=== PATIENT | female | born 1945 | race Caucasian/White ===

== ENCOUNTER 2019-06-09 13:13 | Emergency (ER) | payer MEDICARE ==
--- OUTSIDE RECORDS SUMMARY | 2019-06-09 13:21 | XMS REPORT | Continuity of Care Document ---
:1945 External Reference #:[id number] Author Name Zaira Bonilla M.D. (transmitted by agent of provider She Lujan) Address [address] [place] [address] Problems Active Problems Provider Date Hyperlipidemia Zaira Bonilla M.D. Onset: 07/02/2012 Benign hypertensive heart disease without Zaira Bonilla M.D. Onset: 07/02/2012 congestive heart failure Chronic ischemic heart disease Zaira Bonilla M.D. Onset: 07/02/2012 Depressive disorder Zaira Bonilla M.D. Onset: 07/02/2012 Peripheral vascular disease Zaira Bonilla M.D. Onset: 07/02/2012 Common cold Zaira Bonilla M.D. Onset: 07/02/2012 Social History Type Date Description Comments Sex Unknown ETOH Use Denies alcohol use Tobacco Use Start: Unknown End: Patient is a former smoker Quit in 1972 Unknown Recreational Drug Use Denies Drug Use Smoking Status Reviewed: 04/25/18 Patient is a former smoker Quit in 1972 Allergies, Adverse Reactions, Alerts Active Allergies Reaction Severity Comments Date sulfa Rash 07/02/2012 Codeine Epigastric pain 07/02/2012 Medications Active Medications SIG Qnty Indications Ordering Date Provider Azithromycin 2 by mouth 6tabs J02.9 Zaira Bonilla, 04/30/2019 250mg today, 1 by M.DKiara Tablets mouth day 2 thru 5 Dorzolamide 1 gtt both eyes Zaira Bonilla, 02/25/2019 Hydrochloride/Timolol bid M.DKiara Maleate PF 22.3-6.8mg/ml Solution Lumbar Back as directed 1units M54.16 Zaira Bonilla, 02/25/2019 Brace/Supportpad/Adjus M.D. table Misc Diltiazem HCL ER Take One Capsule 90caps Zaira Bonilla, 01/15/2019 Coated Beads By Mouth Every M.D. 120mg Caps Day ER 24HR Fluticasone Propionate 1 spray each 1Bottle L20.9 Zaira Bonilla, 12/24/2018 Nasal Lyme 24- Hour nostril once M.D. daily 50mcg/Act Suspension Imodium A-D 1 by mouth every 30caps Zaira Bonilla, 05/30/2018 2mg Capsules 4 hours as M.D. needed for diarrhea Alprazolam 1 by mouth three 90tabs Zaira Bonilla, 04/25/2018 0.25mg Tablets times a day as M.D. needed Betamethasone apply to 30gm L40.0 Zaira Bonilla, 04/12/2017 Dipropionate affected areas M.D. 0.05% Cream right nares twice daily Sertraline HCL Take One And 150tabs Zaira Bonilla, 09/14/2015 100mg One-Half Tablets M.D. Tablets By Mouth Daily Plavix take one tablet 90tabs Zaira Bonilla, 07/02/2012 75mg Tablets by mouth every M.D. day Nitroglycerin Lingual Zaira Bonilla, 07/02/2012 M.DKiara 0.4mg/Lyme Solution Valtrex 1 by mouth three 30tabs Zaira Bonilla, 07/02/2012 500mg Tablets times a day as M.D. needed Tylenol 8 Hour as needed 100tabs Zaira Bonilla, 07/02/2012 650mg M.D. Tablets ER Methotrexate tab 2 by mouth Unknown 2.5mg every week Tablets Remicade every 8 weeks Unknown 300mg Solution Rec Crestor 1 by mouth every Unknown 10mg Tablets day History Medications Atorvastatin Calcium tab 1 by mouth Zaira Bonilla M.D. 01/27/2019 - 80mg every day 02/25/2019 Tablets Diltiazem HCL every day 30tabs Zaira Bonilla M.D. 01/15/2019 - 120mg Tablets 01/27/2019 Immunizations CPT Code Status Date Vaccine Lot # [id number] Given 03/27/2019 Influenza Virus (Afluria) Split Virus 3 Years Of Age And Older 08505 Given 03/27/2019 Influenza Virus Vaccine, Quadrivalent, Split, Preservative Free [id number] Given 03/26/2018 Influenza Virus (Afluria) Split Virus 3 Years Of Age And Older 10863 Given 03/26/2018 Influenza Virus Vaccine, Quadrivalent, Split, Preservative Free [id number] Given 03/26/2018 Influenza,Inactivated Subunit For Intramuscular [id number] Use Q2035 Given 04/12/2017 Influenza Virus (Afluria) Split Virus 3 Years Of [id number] Age And Older Q2037 Given 03/13/2016 Influenza Vaccine (Fluvirin) 3 Years Of Age Or [id number] Older Q2037 Given 05/18/2015 Influenza Vaccine (Fluvirin) 3 Years Of Age Or [id number] Older Q2037 Given 04/08/2014 Influenza Vaccine (Fluvirin) 3 Years Of Age Or Older [id number] Given 04/03/2013 Influenza Vaccine (Fluzone) Administered Age 3 And Older Q2038 Given 04/03/2013 Influenza Vaccine (Fluzone) Administered Age 3 [id number] And Older Q2037 Given 04/15/2012 Influenza Vaccine (Fluvirin) 3 Years Of Age Or [id number] Older 47123 Given 07/16/2009 Pneumovax Polyvalent Inj Im Vital Signs Date Vital Result Comment 04/30/2019 10:59am BP Systolic 138 mmHg BP Diastolic 82 mmHg Heart Rate 72 /min Height 61 inches 5'1" Weight 132.00 lb BMI (Body Mass Index) 24.9 kg/m2 O2 % BldC Oximetry 96 % 03/27/2019 10:51am BP Systolic 148 mmHg BP Diastolic 84 mmHg Heart Rate 78 /min Height 61 inches 5'1" Weight 133.00 lb BMI (Body Mass Index) 25.1 kg/m2 O2 % BldC Oximetry 98 % Results Test Date Facility Test Result H/L Range Note Glycohemoglobin A1c 01/15/20 [facility] Glycohemoglobin 5.6 % Normal 4.2-6.3 1, [address] (A1c) [place], [place] [id number] [phone] eAG 114 mg/dL Comprehensive 01/14/2019 [facility] Glucose 114 mg/ dL High 74-106 Metabolic Panel [address] [place], [place] [id number] [phone] BUN 21 mg/dL High 7-18 Creatinine 0.7 mg/dL Normal 0.6-1.3 Glom Filtration Rate, Estimate >60 mL/min >60 If >60 mL/min >60 3 BUN/Creat 30.0 ratio Sodium 139 mmol/L Normal 136-145 Potassium 4.2 mmol/L Normal 3.5-5.1 Chloride 107 mmol/L Normal 98-107 Carbon Dioxide 28 mmol/L Normal 21-32 Anion Gap 4 mEq/L Low 8-16 Calcium 9.2 mg/dL Normal 8.5-10.1 Total Protein 7.5 g/dL Normal 6.4-8.2 Albumin 3.9 g/dL Normal 3.4-5.0 Globulin 3.6 g/dL Normal 1.9-4.3 Alb/Glob 1.1 ratio Bilirubin,Total 0.3 mg/dL Normal 0.2-1.0 Sgot/Ast 22 U/L Normal 15-37 SGPT/Alt 30 U/L Normal 12-78 Alkaline Phosphatase 72 U/L Normal 45-117 Reflex add FT3? Y Reflex add FT4? Y LDL Cholesterol 01/14/2019 [facility] Cholesterol 157 mg/dL <200 [address] [place] [address] [phone] Triglycerides 78 mg/dL <150 5 HDL Cholesterol 41 mg/dL >40 6 LDL-Cholesterol 100 mg/dL < 100 7 Reflex add FT3? Y Reflex add FT4? Y TSH Reflex 01/14/2019 [facility] Thyroid Stim 2.19 uIU/mL Normal 0.30-4.20 FT4 And/Or [address] Hormone FT3 [place] [address] [phone] Reflex add FT3? Y Reflex add FT4? Y 1 E78.2 I25.10 2 Elevated levels of HbA1c suggest the need for more aggressive treatment of glycemia. The [place] [employer] recommends that a primary goal of therapy should be a HbA1c of <7% and that physicians should re-evaluate the treatment regimen in patients with HbA1c values consistently >8%. 3 Note: Persistent reduction for 3 months or more in an eGFR <60 mL/min/1.73 m2 defines CKD. Patients with eGFR values >/=60 mL/min/1.73 m2 may also have CKD if evidence of persistent proteinuria is present. The original MDRD equation for estimated GFR is not valid for patients less than 18 years of age. Additional information may be found at www.kdoqi.org. 4 Reference Guidelines*: Desirable: ........... < 200 mg/dL Borderline High: ..... 200-239 mg/dL High: ................ >= 240 mg/dL * The National Cholesterol Education Program (NCEP) 5 Reference Guidelines*: Normal: ............. < 150 mg/dL Borderline High: .... 150-199 mg/dL High: ............... 200-499 mg/dL Very High: .......... > 500 mg/dL * Source: National Cholesterol Education Program (NCEP) 6 Reference Guidelines*: Low HDL: ..... < 40 mg/dL Normal: ..... 40-60 mg/dL Desirable: ... > 60 mg/dL *The National Cholesterol Education Program(NCEP) 7 Reference Guidelines*: Optimal:........... <100 mg/dL Near Optimal....... 100-129 mg/dL Borderline High.... 130-159 mg/dL High............... 160-189 mg/dL Very High.......... >=190 mg/dL * Source: National Cholesterol Education Program (NCEP) Procedures Date Code Description Status 02/08/2015 22055946 Mammogram Completed 04/02/2014 004313496 Bone Mineral Density Test Completed 07/16/2009 [id number] Colonoscopy Completed Medical Devices Description No Information Available Encounters Type Date Location Provider Dx Diagnosis Office Visit 03/27/2019 Main Office Zaira Bonilla M.D. F41.1 Generalized anxiety 10:45a disorder L40.50 Arthropathic psoriasis, unspecified K21.9 Gastro-esophageal reflux disease without esophagitis Z23 Encounter for immunization Office Visit 02/25/2019 2:15p Main Office Zaira Bonilla L40.50 Arthropathic M.D. psoriasis, unspecified F41.1 Generalized anxiety disorder M54.16 Radiculopathy, lumbar region Office Visit 01/27/2019 2:30p Main Office Zaira Bonilla L40.50 Arthropathic M.D. psoriasis, unspecified F41.1 Generalized anxiety disorder E78.5 Hyperlipidemia, unspecified I25.10 Athscl heart disease of [place] coronary artery w/o ang pctrs Office Visit 12/30/2018 3:00p Main Office Zaira Bonilla, L23.3 Allergic contact M.D. dermatitis due to drugs in contact w skin L40.50 Arthropathic psoriasis, unspecified F41.1 Generalized anxiety disorder Office Visit 12/24/2018 2:30p Main Office Zaira Bonilla L20.9 Atopic dermatitis, M.D. unspecified Office Visit 11/26/2018 10:45a Main Office Zaira Bonilla F41.1 Generalized anxiety M.D. disorder L23.3 Allergic contact dermatitis due to drugs in contact w skin Assessments Date Code Description Provider 04/30/2019 F41.1 Generalized anxiety disorder Zaira Bonilla M.D. 04/30/2019 L40.50 Arthropathic psoriasis, unspecified Zaira Bonilla M.D. 04/30/2019 J02.9 Acute pharyngitis, unspecified Zaira Bonilla M.D. 03/27/2019 F41.1 Generalized anxiety disorder Zaira Bonilla M.D. 03/27/2019 L40.50 Arthropathic psoriasis, unspecified Zaira Bonilla M.D. 03/27/2019 K21.9 Gastro-esophageal reflux disease without Zaira Bonilla M.D. esophagitis 03/27/2019 Z23 Encounter for immunization Zaira Bonilla M.D. 02/25/2019 L40.50 Arthropathic psoriasis, unspecified Zaira Bonilla M.D. 02/25/2019 F41.1 Generalized anxiety disorder Zaira Bonilla M.D. 02/25/2019 M54.16 Radiculopathy, lumbar region Zaira Bonilla M.D. 01/27/2019 L40.50 Arthropathic psoriasis, unspecified Zaira Bonilla M.D. 01/27/2019 F41.1 Generalized anxiety disorder Zaira Bonilla M.D. 01/27/2019 E78.5 Hyperlipidemia, unspecified Zaira Bonilla M.D. 01/27/2019 I25.10 Atherosclerotic heart disease of [place] coronary Zaira Bonilla M.D. artery without a 12/30/2018 L23.3 Allergic contact dermatitis due to drugs in Zaira Bonilla M.D. contact with skin 12/30/2018 L40.50 Arthropathic psoriasis, estellaified Zaira Bonilla M.D. 12/30/2018 F41.1 Generalized anxiety disorder Zaira Bonilla M.D. 12/24/2018 L20.9 Atopic dermatitis, unspecified Zaira Bonilla M.D. 11/26/2018 F41.1 Generalized anxiety disorder Zaira Bonilla M.D. 11/26/2018 L23.3 Allergic contact dermatitis due to drugs in Zaira Bonilla M.D. contact with skin Plan of Treatment Future Appointment(s):06/02/2019 10:30 am - Zaira Bonilla M.D. at [id number] - Zaira Bonilla M.D.F41.1 Generalized anxiety disorderComments:continue xanax 0.25 mg bid, urine drug test results are as expected. Functional Status Description No Information Available Mental Status Description No Information Available Referrals Refer to Reason for Referral Status Appt Date [place] 04/28/2019 [address] [facility] [address] [phone]
[2019-06-09 13:26] VITALS: BP 156/79
--- NOTE | 2019-06-09 14:23 | ED ---
GI/ HPI - HPI Summary HPI Summary: 73-year-old white female presents for medication refill for alprazolam 0.25 mg. Per [employer] website last prescription refill was on April 29, 2019 for 90 tabs. Patient states she's recently had psoriasis flare up which required her to take 3 times a day dosing of her alprazolam which was up from her twice a day daily dosing of alprazolam. However she called PCP for medication refill, she was told by her PCP as well as her insurance company to go to urgent care for a few pills to bridge her refills. Patient is visibly anxious as to having her medications refilled and having met resistance in getting her anti-anxiolytic medication filled. - History of Current Complaint Chief Complaint: UCGeneralIllness Time Seen by Provider: 06/09/19 13:34 Stated Complaint: MED REFILL Hx Obtained From: Patient, Family/M[employer] Work[employer] Pain Intensity: 0 - Allergy/Home Medications Allergies/Adverse Reactions: Allergies Allergy/AdvReac Type Severity Reaction Status Date / Time codeine Allergy Unknown Unknown Verified 06/09/19 13:26 Reaction Details Sulfa (Sulfonamide Allergy Unknown Unknown Verified 06/09/19 13:26 Antibiotics) Reaction Details Home Medications: Home Medications Rosuvastatin (NF) [Crestor (NF)] 20 mg PO BEDTIME 06/09/19 [History Confirmed ] inFLIXimab* [Remicade*] 100 mg .SEE ORDER SEE INSTRUCTIONS 06/09/19 [History Confirmed 06/09/19] PMH/Surg Hx/FS Hx/Imm Hx Previously Healthy: No Cardiovascular History: Reports: Hx Hypertension Psychiatric History: Reports: Hx Anxiety - Surgical History Surgery Procedure, Year, and Place: 3 bipasses; PAD; gallbladder; stents in heart Infectious Disease History: No Infectious Disease History: Denies: Traveled Outside the [place] in Last 30 Days - Family History Known Family History: Positive: Non-Contributory - Social History Alcohol Use: None Substance Use Type: Reports: None Smoking Status (MU): Never Smoked Tobacco Review of Systems Constitutional: Negative Eyes: Negative ENT: Negative Cardiovascular: Negative Respiratory: Negative Gastrointestinal: Negative Genitourinary: Negative Musculoskeletal: Negative Skin: Negative Neurological: Negative Positive: Anxious All Other Systems Reviewed And Are Negative: Yes Physical Exam - Summary Physical Exam Summary: Appearance: Positive: No Pain Distress Skin: Positive: Warm Head/Face: Positive: Normal Head/Face Inspection Eyes: :Normal ENT: Normal ENT inspection Neck: Positive: Supple Respiratory/Lung Sounds: Positive: Clear to Auscultation. Negative: Rales, Rhonchi, Wheezes Cardiovascular: Positive: Normal, RRR, S1, S2 Abdomen : soft, NT/ND Musculoskeletal: Positive: Normal, Strength/ROM Intact Neurological: Positive: CN 2-12 grossly intact Psych-visibly anxious, Irate that she cannot get her anxiety under control and that she could not get her medication refill. Triage Information Reviewed: Yes Vital Signs On Initial Exam: Initial Vitals Temp Pulse Resp BP Pulse Ox 37.2 C 74 18 156/79 100 06/09/19 13:21 06/09/19 13:21 06/09/19 13:21 06/09/19 13:21 06/09/19 13:21 Vital Signs Reviewed: Yes Diagnostics - Vital Signs Vital Signs Temp Pulse Resp BP Pulse Ox 06/09/19 13:21 37.2 C 74 18 156/79 100 - Laboratory Lab Statement: Any lab studies that have been ordered have been reviewed, and results considered in the medical decision making process. GIGU Course/Dx - Course Assessment/Plan: [employer] website visitedpatient's last alprazolam refill was April 29 which was last month and more than 30 days ago. Advised patient to follow up with mental health counselor and her PCP to better manage her anxiety.. Patient states there is lack of resources in [place]. Advised patient to follow up with [facility] for further control of her current symptoms and to monitor her anxiety level with tapering down dose of her alprazolam. Patient verbalized understanding and is okay with only having few pills (#6) to bridge her over for her until her next refill of her medication. - Diagnoses Provider Diagnoses: Severe anxiety, Encounter for medication refill Discharge ED - Sign-Out/Discharge Documenting (check all that apply): Patient Departure All imaging exams completed and their final reports reviewed: No Studies - Discharge Plan Condition: Stable Disposition: HOME Prescriptions: ALPRAZolam TAB* [Xanax TAB*] 0.25 mg PO BID PRN 3 Days #6 tab MDD 2 PRN Reason: Anxiety Patient Education Materials: Generalized Anxiety Disorder (ED) Referrals: Zaira Bonilla MD [Primary Care Provider] - Additional Instructions: Please follow-up with [facility] mental health services Department [address] [facility] [place] [address] [phone] Compliance & Breach Hot Line - Billing Disposition and Condition Condition: STABLE Disposition: Home
== END 2019-06-09 14:32 | disposition home or self-care (01) ==
LOC: UCCORT 13:13
DX: Z76.0 Encounter for issue of repeat prescription (principal); F41.9 Anxiety disorder, unspecified; Z88.5 Allergy status to narcotic agent; Z88.2 Allergy status to sulfonamides; I10 Essential (primary) hypertension; Z79.899 Other long term (current) drug therapy
CPT/HCPCS: 99212; G0463